=== PATIENT | female | born 1980 | race Caucasian/White ===

== ENCOUNTER 2021-06-26 10:02 | Day surgery (SDC) | payer OTHER ==
--- NOTE | 2021-06-26 07:19 | Short Stay Summary ---
Short Stay Documentation Date of service: 06/26/21 Narrative H&P: 40-year-old -1-1-4 presents with findings of a retained IUD. Multiple attempts were made in the office to remove the IUD under ultrasound guidance without success. The patient is scheduled for hysteroscopic removal. - History Principal diagnosis: Retained IUD Past Medical History: No medical history Past Surgical History: No surgical history Social history: - Allergies and Medications Current Medications: Allergies No Known Allergies Allergy (Unverified 10/24/12 10:04) Home Medications Medication Instructions Recorded Confirmed Last Taken Type No Known Home Medications [No 06/19/21 06/19/21 Unknown History Reported Home Medications] - Physical exam General appearance: no acute distress Integumentary: no rash HEENT: Atraumatic Lungs: Clear to auscultation Breasts: deferred Heart: Regular rate Gastrointestinal: normal Female Genitourinary: deferred Rectal Exam: deferred - Brief post op/procedure progress note Date of procedure: 06/26/21 Pre-op diagnosis: Retained IUD Post-op diagnosis: same Procedure: Hysteroscopy Removal of IUD Anesthesia: MAC Surgeon: MATT MARMOLEJO Estimated blood loss: minimal Pathology: list (ParaGard IUD) Specimen disposition: to lab Condition: stable - Hospital course Hospital course: The patient was admitted the day of surgery underwent a hysteroscopy and removal of her IUD. Please see operative note for details of surgery. Her postoperative course was uneventful. - Disposition Condition at discharge: Good Disposition: 01 HOME / SELF CARE / HOMELESS Short Stay Discharge Plan Activity: no restrictions Diet: regular Additional Instructions: Follow-up is not required Follow-up as needed
[2021-06-26] MEDS ORDERED: LACTATED RINGERS 1,000 ML ONE (10:54)
[2021-06-26] MEDS ORDERED: ONDANSETRON 4 MG/2 ML INJ IV PRN (11:57)
[2021-06-26] MEDS ORDERED: HYDROmorphone 1 MG/1 ML INJ IV PRN ×2 (11:57)
--- NOTE | 2021-06-26 11:58 | Anesthesia Day of Surgery ---
Anesthesia Day of Surgery - Day of Surgery Patient Examined: Yes Patient H&P Reviewed: Yes Patient is NPO: Yes
--- NOTE | 2021-06-26 11:59 | Anesthesia Consultation ---
Anesthesia Consult and Med Hx Date of service: 06/26/21 - Airway Anesthetic Teeth Evaluation: Chipped ROM Head & Neck: Adequate Mental/Hyoid Distance: Adequate Mallampati Class: Class II Intubation Access Assessment: Good - Pre-Operative Health Status ASA Pre-Surgery Classification: ASA2 Proposed Anesthetic Plan: General - Pulmonary Hx Smoking: No Hx Asthma: No COPD: No Hx Pneumonia: No Hx Sleep Apnea: No - Cardiovascular System Hx Hypertension: Yes (HX OF NO MEDS NOW) - Central Nervous System Hx Seizures: No Hx Back Pain: Yes Hx Psychiatric Problems: No - Endocrine Hx Renal Disease: No Hx End Stage Renal Disease: No Hx Hypothyroidism: No Hx Hyperthyroidism: No - Hematic Hx Anemia: No Hx Sickle Cell Disease: No - Other Systems Hx Alcohol Use: No Hx Substance Use: No Hx Cancer: No
[2021-06-26] MEDS ORDERED: LACTATED RINGERS 1,000 ML IV SCH (12:00)
[2021-06-26] MEDS ORDERED: MIDAZOLAM 2 MG/2 ML INJ IV NR (12:00)
[2021-06-26] MEDS ORDERED: propofoL 200 MG/20 ML VIAL IV ONE (13:24)
[2021-06-26] MEDS ORDERED: LIDOCAINE MPF (2%) 20 MG/1 ML VIAL 5 ML ONE (13:25)
[2021-06-26] MEDS ORDERED: MIDAZOLAM 2 MG/2 ML INJ ONE (13:27)
[2021-06-26] MEDS ORDERED: ONDANSETRON 4 MG/2 ML INJ ONE (13:38)
--- NOTE | 2021-06-26 14:04 | Operative Report ---
Operative Report Operative Report: Date of procedure: June 26, 2021 Pre-operative diagnosis: Retained IUD Post-operative diagnosis: Same as above Procedure name(s): Hysteroscopy; removal of IUD Surgeon: Nola Bass M.D. Die Cleaner: None Anesthesia: MAC Findings ParaGard IUD in uterine cavity Indication: 40-year-old -1-1-4 with a history of retained IUD. Multiple attempts were made to remove the IUD in office without success. Procedure The patient was taken to the operating room and given general tracheal anesthesia without complication. The patient was prepped and draped in a normal sterile fashion. A bivalve speculum was placed in the patient's vagina single- tooth tenaculums placed on the anterior lip of the cervix. The cervical os was dilated with graduated dilators. A uterine sound was inserted. The hysteroscope was then placed. Insufflation of the uterine cavity was performed with normal saline. Gen. survey of the uterine cavity revealed ParaGard IUD in the uterine cavity. A grasper was inserted through the hysteroscope. The ParaGard IUD was removed with findings of the wing that was still in place. The hysteroscope was again reinserted with removal of the remaining piece however incidentally unable to locate the wing of the IUD during the process of removing the hysteroscope. General survey of the uterine cavity did not reveal evidence of any retained objects. The hysteroscope was then removed. The remainder of the vaginal instruments were then removed atraumatically. The patient was then successfully extubated taken to the recovery room. All sponge laps and needle counts were correct 2.
[2021-06-26] MEDS ORDERED: SODIUM CHLORIDE 0.9% IRRIG SOLN 3000 ML IR ONE (14:24)
[2021-06-26] MEDS ORDERED: ACETAMINOPHEN 325 MG TAB PO ONE (15:36)
[2021-06-26 17:51] VITALS: BP 142/89
--- NOTE | 2021-06-26 18:33 | Post Anesthesia Evaluation ---
- Post Anesthesia Evaluation Patient Participated: Yes Airway Patent: Yes Stable Respiratory Function: Yes Nausea/Vomiting: No Temp > 96.8F: Yes Pain Manageable: Yes Adequeate Hydration: Yes Anesthesia Complications: No Block Receding Appropriately: Not Applicable Patient on Ventilator: No
== END 2021-06-26 15:45 | disposition home or self-care (01) ==
LOC: OR 10:02
PROVIDERS: ATTEND Obstetrics & Gynecology
DX: T83.89XA Other specified complication of genitourinary prosthetic devices, implants and grafts, initial encounter (principal); Z30.432 Encounter for removal of intrauterine contraceptive device; G43.909 Migraine, unspecified, not intractable, without status migrainosus; I10 Essential (primary) hypertension; Y82.8 Other medical devices associated with adverse incidents; Y92.89 Other specified places as the place of occurrence of the external cause; Z98.890 Other specified postprocedural states
CPT/HCPCS: 58562; 81025; 88300; J1170; J2250; J2405; J2704; J7120; 88302